=== PATIENT | male | born 1990 | race Caucasian/White ===

== ENCOUNTER 2021-01-04 09:49 | Emergency (ER) | payer SELFPAY ==
--- NOTE | 2021-01-04 11:59 | EDM.PDOC ---
<Pat De Leon - Last Filed: 01/04/21 12:59> ED HPI GENERAL MEDICAL PROBLEM - General Chief Complaint: Upper Extremity Injury/Pain Stated Complaint: STRETCHED AND HEARD A POP/LEFT RIB PAIN Time Seen by Provider: 01/04/21 11:40 - Related Data Allergies Allergy/AdvReac Type Severity Reaction Status Date / Time No Known Allergies Allergy Verified 01/04/21 11:34 Home Meds: Home Meds . [No Known Home Meds] 01/04/21 [History] Departure - Departure Time of Disposition: 12:52 Disposition: Home, Self-Care 01 Condition: Good Clinical Impression: Muscle strain of chest wall Qualifiers: Encounter type: initial encounter Qualified Code(s): S29.011A - Strain of muscle and tendon of front wall of thorax, initial encounter - Discharge Information *PRESCRIPTION DRUG MONITORING PROGRAM REVIEWED*: Not Applicable *COPY OF PRESCRIPTION DRUG MONITORING REPORT IN PATIENT COLE: Not Applicable Instructions: Muscle Strain, [id number] Forms: ED Department Discharge Care Plan Goals: -Recommend ice or heat therapy to chest wall to improve pain. -Patient may take ibuprofen or Tylenol PRN for pain. -Limit lifting of heavy weight as tolerated. Discuss weight restrictions with work. -Follow up with primary care facility or ED if symptoms worsen or new symptoms develop such as SOB or chest pain. <Myron Jeffrey - Last Filed: 01/04/21 13:54> ED HPI GENERAL MEDICAL PROBLEM - General Source of Information: Reports: Patient History Limitations: Reports: No Limitations - History of Present Illness INITIAL COMMENTS - FREE TEXT/NARRATIVE: This 30 yo male patient reports to the ED due to left lower rib pain. The patient reports he was moving a 170 pound desk yesterday and felt a "pop" in his left lower ribs. The patient reports he has continued to have pain today. The patient has not taken anything for his current symptoms. The patient has point tenderness to the area. Onset Date: 01/03/21 Duration: Constant Location: Reports: Chest (left lower ribs) Quality: Reports: Ache Severity: Moderate Improves with: Reports: None Worsens with: Reports: None Context: Reports: Other Associated Symptoms: Reports: No Other Symptoms Left Pain Score (Numeric/FACES): 7 Past Medical History HEENT History: Reports: Impaired Vision, Other (See Below) Other HEENT History: cyst removed as a child behind left ear Cardiovascular History: Reports: None Respiratory History: Reports: None Gastrointestinal History: Reports: None Genitourinary History: Reports: None Musculoskeletal History: Reports: None Neurological History: Reports: None Psychiatric History: Reports: None Endocrine/Metabolic History: Reports: None Hematologic History: Reports: None Immunologic History: Reports: None Oncologic (Cancer) History: Reports: None Dermatologic History: Reports: None - Infectious Disease History Infectious Disease History: Reports: None - Past Surgical History Head Surgeries/Procedures: Reports: None Social & Family History - Family History Family Medical History: No Pertinent Family History - Caffeine Use Caffeine Use: Reports: Soda - Recreational Drug Use Recreational Drug Use: No Review of Systems - Review of Systems Review Of Systems: Comprehensive ROS is negative, except as noted in HPI. ED EXAM, GENERAL - Physical Exam Exam: See Below Exam Limited By: No Limitations General Appearance: Alert, WD/WN, Mild Distress Eye Exam: Bilateral Eye: EOMI, Normal Inspection, PERRL Ears: Normal External Exam, Normal Canal, Hearing Grossly Normal, Normal TMs Nose: Normal Inspection, Normal Mucosa, No Blood Throat/Mouth: Normal Inspection, Normal Lips, Normal Teeth, Normal Gums, Normal Oropharynx, Normal Voice, No Airway Compromise Head: Atraumatic, Normocephalic Neck: Normal Inspection, Supple, Non-Tender, Full Range of Motion Respiratory/Chest: No Respiratory Distress, Lungs Clear, Normal Breath Sounds, No Accessory Muscle Use, Other (left lower anterior rib pain) Cardiovascular: Normal Peripheral Pulses, Regular Rate, Rhythm, No Edema, No Gallop, No JVD, No Murmur, No Rub GI/Abdominal: Normal Bowel Sounds, Soft, Non-Tender, No Organomegaly, No Distention, No Abnormal Bruit, No Mass (Male) Exam: Deferred Rectal (Males) Exam: Deferred Back Exam: Normal Inspection, Full Range of Motion, NT Extremities: Normal Inspection, Normal Range of Motion, Non-Tender, Normal Capillary Refill, No Pedal Edema Neurological: Alert, Oriented, CN II-XII Intact, Normal Cognition, Normal Gait, Normal Reflexes, No Motor/Sensory Deficits Psychiatric: Normal Affect, Normal Mood Skin Exam: Warm, Dry, Intact, Normal Color, No Rash Lymphatic: No Adenopathy Course - Vital Signs Last Recorded V/S: Last Vital Signs Temp 36.5 C 01/04/21 11:25 Pulse 72 01/04/21 11:25 Resp 18 01/04/21 11:25 BP 109/68 01/04/21 11:25 Pulse Ox 99 01/04/21 11:25 - Orders/Labs/Meds Meds: Medications Discontinued Medications Generic Name Dose Route Start Last Admin Trade Name Kenyonq PRN Reason Stop Dose Admin Ketorolac Tromethamine 30 mg 01/04/21 12:39 01/04/21 13:14 Ketorolac 30 Mg/Ml Sdv IM 01/04/21 12:40 Not Given ONETIME ONE - Re-Assessments/Exams Free Text/Narrative Re-Assessment/Exam: 01/04/21 13:54 I have examined the patient. I have discussed findings and treatment plan with the PA student. I agree with the assessment and plan in the following students note. Sepsis Event Note (ED) - Evaluation Sepsis Screening Result: No Definite Risk - Focused Exam Vital Signs: Vital Signs Temp Pulse Resp BP Pulse Ox 01/04/21 11:25 36.5 C 72 18 109/68 99
--- NOTE | 2021-01-04 12:36 | CR ---
PROCEDURE INFORMATION: Exam: XR Left Ribs with PA Chest Exam date and time: 01/04/2021 11:50 AM Age: 30 years old Clinical indication: Other: Left lower rib pain TECHNIQUE: Imaging protocol: XR Left ribs with PA chest. Views: 3 views COMPARISON: No relevant prior studies available. FINDINGS: Lungs: Unremarkable. No consolidation. Pleural spaces: Unremarkable. No pleural effusion. No pneumothorax. Heart/Mediastinum: Unremarkable. No cardiomegaly. Bones/joints: Unremarkable. IMPRESSION: No acute findings.
[2021-01-04] MEDS ORDERED: Ketorolac 30 MG/ML SDV IM ONE (12:39)
== END 2021-01-04 13:15 | disposition home or self-care (01) ==
LOC: DL.ED 09:49
DX: S29.011A Strain of muscle and tendon of front wall of thorax, initial encounter (principal); X50.0XXA Overexertion from strenuous movement or load, initial encounter
CPT/HCPCS: 71101-LT; 99283